=== PATIENT | female | born 2000 | race African-American/Black ===

== ENCOUNTER 2019-03-18 20:56 | Emergency (ER) | payer MEDICAID ==
[~2019-03-18] VITALS: Ht 152.4 cm; Wt 59.0 kg
[2019-03-18 21:00] VITALS: Ht 152.4 cm; Wt 59.0 kg
[2019-03-18] MEDS ORDERED: PHENERGAN25 M1 PO (21:01)
[2019-03-18 21:57] LABS: APPEARANCE TURBID (CLEAR); BILIRUBIN NEGATIVE (NEGATIVE); COLOR DK YELLOW (YELLOW); GLUCOSE NEGATIVE (NEGATIVE); KETONE NEGATIVE (NEGATIVE); NITRITE NEGATIVE (NEGATIVE); PROTEIN TRACE mg/dL (NEGATIVE); UROBILINOGEN NORMAL (NORMAL)
[2019-03-18 21:57] LABS: BASOPHILS 0.1 % (0-2); EOSINOPHILS 3.3 % (0-7); HEMATOCRIT 36.5 % (36.0-48.0); HEMOGLOBIN 12.3 g/dL (12-16); IMMATURE GRANULOCYTES 0.5 % (0-5); LYMPHOCYTES 17.7 % (15-50); MCH 31.4 pg (26.0-34.0); MCHC 33.7 g/dL (31.0-37.0); MCV 93.1 fL (80.0-100.0); MEAN PLATELET VOLUME 9.2 fL (7.4-10.4); NEUTROPHILS 69.4 % (40-80); PLATELET COUNT 279 10x3/uL (130-400); RBC 3.92 10x6/uL (4.00-5.40); RDW 13.1 % (11.5-14.5); WBC 14.6 10x3/uL (4.8-10.8)
[2019-03-18 21:59] LABS: CALC OSMOLALITY 274 mosm/kg (275-300); CALCIUM 8.7 mg/dL (8.5-10.1); CARBON DIOXIDE 25.6 mmol/L (21.0-32.0); CHLORIDE - SERUM 103 mmol/L (98-107); CREATININE - SERUM 0.6 mg/dL (0.6-1.3); GLUCOSE 87 mg/dL (74-106); POTASSIUM - SERUM 3.7 mmol/L (3.5-5.1); SODIUM 139 mmol/L (136-145); UREA NITROGEN 7 mg/dL (7-18); eGFR NON AFRICAN AMERICAN > 90 mL/min (90-120)
[2019-03-18 22:00] LABS: BACTERIA MODERATE /hpf (NEGATIVE); MUCUS <1+ /lpf (NONE SEEN); RED CELLS - URINE 0-5 /hpf (0-5)
[2019-03-18 22:12] LABS: UDS - AMPHET NEGATIVE QUAL (NEGATIVE); UDS - BARB NEGATIVE QUAL (NEGATIVE); UDS - BENZO NEGATIVE QUAL (NEGATIVE); UDS - COCAINE NEGATIVE QUAL (NEGATIVE); UDS - OPIATE POSITIVE QUAL (NEGATIVE); UDS - PCP NEGATIVE QUAL (NEGATIVE); UDS - THC NEGATIVE QUAL (NEGATIVE)
[2019-03-18 22:14] LABS: ALBUMIN 2.9 g/dL (3.4-5.0); ALKALINE PHOSPHATASE 47 U/L (46-116); ALT (SGPT) 16 U/L (10-68); BILIRUBIN - TOTAL 0.21 mg/dL (0.2-1.3); PRO BNP 18 pg/mL (0-125); PROTEIN - SERUM 6.9 g/dL (6.4-8.2); THYROID STIMULATING HORMONE 0.35 uIU/mL (0.36-3.74); TROPONIN-I < 0.017 ng/mL (0.000-0.060)
[2019-03-18] MEDS ORDERED: ALBUTEROL SULF8.5 GM INH (22:17)
[2019-03-18] MEDS ORDERED: OMNICEF300 MG PO (22:17)
[2019-03-18 23:10] VITALS: BP 106/71
== END 2019-03-18 23:10 | disposition home or self-care (01) ==
LOC: D.ER 20:56
PROVIDERS: Family Medicine
DX: O23.41 Unspecified infection of urinary tract in pregnancy, first trimester (principal); Z3A.13 13 weeks gestation of pregnancy; J98.01 Acute bronchospasm

== ENCOUNTER 2019-05-23 02:46 | Outpatient (CLI) | payer MEDICAID ==
[~2019-05-23 02:46] MED LIST: ALBUTEROL SULF8.5 GM INH; OMNICEF300 MG PO; PHENERGAN25 M1 PO
[2019-05-23 04:22] LABS: BILIRUBIN NEGATIVE (NEGATIVE); GLUCOSE NEGATIVE (NEGATIVE); KETONE NEGATIVE (NEGATIVE); NITRITE NEGATIVE (NEGATIVE); UROBILINOGEN NORMAL (NORMAL)
[2019-05-23 04:23] LABS: AMORPHOUS SEDIMENT <1+ /lpf (NONE SEEN); BACTERIA FEW /hpf (NEGATIVE); EPITHELIAL CELLS 0-5 /hpf (0-5); RED CELLS - URINE 0-5 /hpf (0-5); WHITE CELLS - URINE 0-5 /hpf (NEGATIVE)
== END 2019-05-23 05:55 | disposition home or self-care (01) ==
LOC: D.LDO 02:46
PROVIDERS: ATTEND Obstetrics & Gynecology
DX: O26.899 Other specified pregnancy related conditions, unspecified trimester (principal); Z3A.00 Weeks of gestation of pregnancy not specified; R10.9 Unspecified abdominal pain

== ENCOUNTER 2019-07-04 12:31 | Outpatient (CLI) | payer MEDICAID | END 2019-07-04 12:59 | disposition home or self-care (01) | LOC: D.LDO 12:31 | PROVIDERS: ATTEND Obstetrics & Gynecology | DX: O36.5930 Maternal care for other known or suspected poor fetal growth, third trimester, not applicable or unspecified (principal); Z3A.30 30 weeks gestation of pregnancy ==

== ENCOUNTER 2019-07-07 18:32 | Outpatient (CLI) | payer MEDICAID | END 2019-07-07 18:46 | disposition home or self-care (01) | LOC: D.LDO 18:32 | PROVIDERS: ATTEND Student in an Organized Health Care Education/Training Program | DX: O36.5930 Maternal care for other known or suspected poor fetal growth, third trimester, not applicable or unspecified (principal); Z3A.30 30 weeks gestation of pregnancy ==

== ENCOUNTER 2019-07-20 14:33 | Outpatient (CLI) | payer MEDICAID | END 2019-07-20 15:23 | disposition home or self-care (01) | LOC: D.LDO 14:33 | PROVIDERS: ATTEND Obstetrics & Gynecology | DX: O36.5930 Maternal care for other known or suspected poor fetal growth, third trimester, not applicable or unspecified (principal); Z3A.32 32 weeks gestation of pregnancy ==

== ENCOUNTER 2019-08-04 12:15 | Outpatient (CLI) | payer MEDICAID ==
[2019-08-04 13:19] LABS: UDS - AMPHET NEGATIVE QUAL (NEGATIVE); UDS - BARB NEGATIVE QUAL (NEGATIVE); UDS - BENZO NEGATIVE QUAL (NEGATIVE); UDS - COCAINE NEGATIVE QUAL (NEGATIVE); UDS - OPIATE NEGATIVE QUAL (NEGATIVE); UDS - PCP NEGATIVE QUAL (NEGATIVE); UDS - THC NEGATIVE QUAL (NEGATIVE)
[2019-08-04 14:11] LABS: BILIRUBIN NEGATIVE (NEGATIVE); GLUCOSE NEGATIVE (NEGATIVE); KETONE NEGATIVE (NEGATIVE); NITRITE NEGATIVE (NEGATIVE); UROBILINOGEN NORMAL (NORMAL)
== END 2019-08-04 14:10 | disposition home or self-care (01) ==
LOC: D.LDO 12:15
PROVIDERS: ATTEND Obstetrics & Gynecology
DX: O36.5990 Maternal care for other known or suspected poor fetal growth, unspecified trimester, not applicable or unspecified (principal); Z3A.00 Weeks of gestation of pregnancy not specified; M54.5 Low back pain

== ENCOUNTER 2019-08-09 15:58 | Observation (INO) | payer MEDICAID ==
--- NOTE | 2019-08-10 10:58 | MORECARE ---
CASE MANAGEMENT DISCHARGE SUMMARY PATIENT: MAXIMINO PRITCHETT UNIT: [id number] ADM DATE: 08/09/19 AGE: 19 : 89 SEX: F ROOM/BED: D.1227 AUTHOR: JAVIER FLOWER PHYSICIAN: REFERRING PHYSICIAN: LEANDER HOLDER DO DATE OF SERVICE: 08/10/19 Discharge Plan Patient Name: MAXIMINO PRITCHETT [facility] [facility] 2000 Planned Disposition: Home Anticipated Discharge Date: 08/10/19 Discharge Date: Expected LOS: 1 Initial Reviewer: [email or web address] Initial Review Date: 08/09/2019 Generated: 08/10/19 11:57 am Patient Name: MAXIMINO PRITCHETT Page [id number] at 1058 All edits/amendments must be made on the electronic document DICTATION DATE: 08/10/19 1057 FURNITURE ARRANGER: DEMARIO 08/10/19 1057 RPT#: [id number] DC DATE: STATUS: ADM IN [facility] [address] [place] [address] END OF REPORT
== END 2019-08-10 08:37 | disposition home or self-care (01) ==
LOC: D.LDO 15:58 → D.LD 19:11 → OBSVTIME 19:11 → D.LD 19:11
PROVIDERS: ADMIT Student in an Organized Health Care Education/Training Program; ATTEND Student in an Organized Health Care Education/Training Program
DX: O26.893 Other specified pregnancy related conditions, third trimester (principal); Z3A.35 35 weeks gestation of pregnancy

== ENCOUNTER 2019-08-12 04:06 | Outpatient (CLI) | payer MEDICAID ==
[2019-08-12 07:04] LABS: BILIRUBIN NEGATIVE (NEGATIVE); GLUCOSE NEGATIVE (NEGATIVE); KETONE NEGATIVE (NEGATIVE); NITRITE NEGATIVE (NEGATIVE); SPECIFIC GRAVITY 1.005 (1.005-1.020); UROBILINOGEN NORMAL (NORMAL)
== END 2019-08-12 10:08 | disposition home or self-care (01) ==
LOC: D.LDO 04:06
PROVIDERS: ATTEND Obstetrics & Gynecology
DX: O26.899 Other specified pregnancy related conditions, unspecified trimester (principal); Z3A.00 Weeks of gestation of pregnancy not specified; N85.8 Other specified noninflammatory disorders of uterus

== ENCOUNTER 2019-08-13 16:45 | Outpatient (CLI) | payer MEDICAID | END 2019-08-13 17:30 | disposition home or self-care (01) | LOC: D.LDO 16:45 → D.LABREF 16:45 → D.LDO 17:30 | PROVIDERS: ATTEND Student in an Organized Health Care Education/Training Program | DX: O36.5930 Maternal care for other known or suspected poor fetal growth, third trimester, not applicable or unspecified (principal); Z3A.35 35 weeks gestation of pregnancy ==

== ENCOUNTER 2019-08-21 22:48 | Outpatient (CLI) | payer MEDICAID ==
[2019-08-21 23:58] LABS: BILIRUBIN NEGATIVE (NEGATIVE); GLUCOSE NEGATIVE (NEGATIVE); KETONE NEGATIVE (NEGATIVE); NITRITE NEGATIVE (NEGATIVE); SPECIFIC GRAVITY 1.025 (1.005-1.020); UROBILINOGEN NORMAL (NORMAL)
[2019-08-21 23:59] LABS: BACTERIA MODERATE /hpf (NEGATIVE); CALCIUM OXALATE CRYSTALS 0-5 /hpf (NONE SEEN); EPITHELIAL CELLS 0-5 /hpf (0-5); RED CELLS - URINE 0-5 /hpf (0-5); WHITE CELLS - URINE 0-5 /hpf (NEGATIVE)
== END 2019-08-22 01:12 | disposition home or self-care (01) ==
LOC: D.LDO 22:48 → D.LD 23:12 → D.LDO 08-22 01:12
PROVIDERS: ATTEND Obstetrics & Gynecology
DX: O26.899 Other specified pregnancy related conditions, unspecified trimester (principal); Z3A.00 Weeks of gestation of pregnancy not specified; N85.8 Other specified noninflammatory disorders of uterus

== ENCOUNTER 2019-08-29 18:06 | Outpatient (CLI) | payer MEDICAID ==
[2019-08-29 19:40] LABS: BILIRUBIN NEGATIVE (NEGATIVE); GLUCOSE NEGATIVE (NEGATIVE); KETONE NEGATIVE (NEGATIVE); NITRITE NEGATIVE (NEGATIVE); UROBILINOGEN NORMAL (NORMAL)
[2019-08-29 19:41] LABS: BACTERIA MODERATE /hpf (NEGATIVE); EPITHELIAL CELLS 0-5 /hpf (0-5); RED CELLS - URINE NONE SEEN /hpf (0-5); WHITE CELLS - URINE 0-5 /hpf (NEGATIVE)
[2019-08-29 19:42] LABS: AMORPHOUS SEDIMENT >1+ /lpf (NONE SEEN)
== END 2019-08-29 20:13 | disposition home or self-care (01) ==
LOC: D.LDO 18:06
PROVIDERS: ATTEND Obstetrics & Gynecology
DX: O26.899 Other specified pregnancy related conditions, unspecified trimester (principal); Z3A.00 Weeks of gestation of pregnancy not specified

== ENCOUNTER 2019-08-30 14:50 | Outpatient (CLI) | payer MEDICAID ==
[2019-09-03 08:44] VITALS: BMI 27.3
== END 2019-08-30 16:30 | disposition home or self-care (01) ==
LOC: D.LDO 14:50
PROVIDERS: ATTEND Student in an Organized Health Care Education/Training Program
DX: O26.899 Other specified pregnancy related conditions, unspecified trimester (principal); Z3A.00 Weeks of gestation of pregnancy not specified; R10.30 Lower abdominal pain, unspecified

== ENCOUNTER 2019-09-03 05:35 | Inpatient (IN) | payer MEDICAID ==
[~2019-09-03] VITALS: Ht 152.4 cm; Wt 63.6 kg
[2019-09-03] MEDS ORDERED: PRENAVITE1 TAB PO (08:32)
[2019-09-03 08:44] VITALS: BP 109/73; Ht 152.4 cm; Wt 63.6 kg
[2019-09-03 09:17] LABS: HEMATOCRIT 31.5 % (36.0-48.0); HEMOGLOBIN 10.3 g/dL (12-16); MCH 30.3 pg (26.0-34.0); MCHC 32.7 g/dL (31.0-37.0); MCV 92.6 fL (80.0-100.0); MEAN PLATELET VOLUME 9.6 fL (7.4-10.4); RBC 3.4 10x6/uL (4.00-5.40); RDW 12.8 % (11.5-14.5); WBC 11.7 10x3/uL (4.8-10.8)
--- NOTE | 2019-09-03 18:00 | NUR ---
PT TRANSFERRED TO ROOM 1273 AMBULATORY WITH ASSIST FROM MOTHER IN TRANSFERRING BELONGINGS. PT AMBULATES WITH STEADY GAIT. PT STATES SHE WANTS TO GET IN SHOWER NOW. ORIENTED TO NEW ROOM AND BATHROOM. PT PROVIDED WITH TOWELS AND SHOWER SUPPLIES. PT TO SHOWER, DENIES FEELING DIZZY OR NEED FOR ASSIST. PT MOTHER IN ROOM WITH PT FOR HELP IF NEEDED. PT INSTRUCTED ON S/S TO REPORT INCLUDING LOCHIA FLOW. UNDERSTANDING VERBALIZED. WILL CONT TO MONITOR.
[2019-09-03 19:20] VITALS: BP 109/64
--- NOTE | 2019-09-03 19:20 | NUR ---
ASSESSMENT PER FLOW SHEET, VS OBTAINED, IV IN LEFT FA INTACT WITH NO REDNESS OR EDEMA, FF, ML, U/1, PT REPORTS LITE BLEEDING WITH NO CLOTS, PT REPORTS THAT SHE ALREADY TOOK A SHOWER, PT RATES CRAMPING 08/07, INFORMED PT THAT I WILL CHECK TO SEE WHAT ELSE SHE HAS ORDERED, PT VERBALIZES UNDERSTANDING, REQUESTED AND SERVED DR ZAMORA, DENIES FURTHER NEEDS, DINNER TRAY REMOVED
--- NOTE | 2019-09-03 19:39 | NUR ---
ADM DENNISON PER MD ORDERS, SEE EMAR
--- NOTE | 2019-09-03 20:30 | NUR ---
PT HOLDING INFANT, VISITING WITH FAMILY MEMBER, RATES CRAMPING 2/10, DENIES NEEDS AT THIS TIME
--- NOTE | 2019-09-03 21:10 | NUR ---
PT IRON HANDLER LIGHT, HOLDING , REQUESTED AND SERVED SANDWICH TRAY, DENIES FURTHER NEEDS, FAMILY MEMBER AT BEDSIDE
--- NOTE | 2019-09-03 22:00 | NUR ---
PT SENIOR SALES OPERATIONS ANALYST LIGHT, HOLDING INFANT, VISITING WITH FAMILY MEMBER, REQUESTED AND SERVED FRESH H20, DENIES SHANNAER NEEDS
--- NOTE | 2019-09-03 22:30 | NUR ---
DR GERONIMO PAGED
--- NOTE | 2019-09-03 22:31 | NUR ---
DR GERONIMO CALLS UNIT, INFORMED DR GERONIMO THAT A UA/UDS WAS ENTERED BY A HEALTHCARE SOCIAL WORKER, DR GERONIMO REPORTS THAT HE DIDN'T ORDER THAT AND TO JUST D/C THAT ORDER
--- NOTE | 2019-09-03 23:38 | NUR ---
PT CORRECTIONS CASEWORKER LIGHT, PT C/O CRAMPING, ADM GABRIELLA PER MD ORDERS, SEE EMAR, PT UPSET BECAUSE HER MOM COULD NOT COME BACK IN, PT INFORMED OF VISITOR RULES BECAUSE HER SISTER IS VISITING NOW, PT NOT HAPPY, REPORTS THAT SHE IS GOING TO FILE A COMPLAINT, PT DENIES FURTHER NEEDS
--- NOTE | 2019-09-03 23:47 | NUR ---
PT INFORMED THAT THE PIZZA THEY ORDERED WAS AT THE ER AT THIS TIME, PT REQUESTS TO WALK WITH HER SISTER TO GO AND GET IT, MASK PROVIDED, PT AMB OFF UNIT, GAIT STEADY, WITH SISTER AT HER SIDE
--- NOTE | 2019-09-03 23:59 | NUR ---
PT BACK TO ROOM, SISTER AT SIDE
--- NOTE | 2019-09-04 01:01 | NUR ---
PT GETTING READY FOR BED, PT INST NOT TO FALL ASLEEP WITH INFANT IN BED WITH HER, PT VERBALIZES UNDERSTANDING, PT RATES CRAMPING 1/10, DENIES NEEDS, BEDDING PROVIDED TO PT'S SISTER
--- NOTE | 2019-09-04 03:30 | NUR ---
PT BODY BUMPER LIGHT, C/O CRAMPING, INFORMED PT THAT I WILL BE IN AT 4:10 TO ADM PAIN MED, PT VERBALIZES UNDERSTANDING, DENIES FURTHER NEEDS AT THIS TIME
--- NOTE | 2019-09-04 04:09 | NUR ---
PT AWAKE, TALKING ON CELL PHONE, INFANT IN OPEN CRIB CART AT BEDSIDE, ADM JUMA PER MD ORDERS, SEE EMAR, PT DENIES FURTHER NEEDS, PT'S SISTER ASLEEP ON COUCH
--- NOTE | 2019-09-04 05:24 | NUR ---
PT HOLDING INFANT, TALKING ON PHONE, REPORTS CRAMPING IS ALITTLE BETTER, DENIES NEEDS AT THIS TIME, SISTER ASLEEP ON COUCH
[2019-09-04 05:57] LABS: BASOPHILS 0.1 % (0-2); EOSINOPHILS 2.6 % (0-7); HEMATOCRIT 30.2 % (36.0-48.0); HEMOGLOBIN 9.7 g/dL (12-16); IMMATURE GRANULOCYTES 0.5 % (0-5); LYMPHOCYTES 31.8 % (15-50); MCH 29.5 pg (26.0-34.0); MCHC 32.1 g/dL (31.0-37.0); MCV 91.8 fL (80.0-100.0); MEAN PLATELET VOLUME 9.6 fL (7.4-10.4); MONOCYTES 12.6 % (2-11); NEUTROPHILS 52.4 % (40-80); PLATELET COUNT 246 10x3/uL (130-400); RBC 3.29 10x6/uL (4.00-5.40); RDW 12.7 % (11.5-14.5); WBC 13.4 10x3/uL (4.8-10.8)
[2019-09-04 07:14] LABS: RAPID PLASMA REAGIN Non Reactive (Non Reactive)
--- NOTE | 2019-09-04 07:59 | NUR ---
PT IN RIGHT LATERAL POSITION. PHYSICAL ASSESSMENT DONE. SEE SHIFT ASSESSMENT. FF/ U/1. MODERATE RUBRA LOCHIA NOTED ON GONZALEZ PADS. PT DENIES PASSING CLOTS THROUGHOUT THE NIGHT. SL IN LEFT WRIST. DCD WITH CATH TIP INTACT PER PT REQUEST. DISCUSSED MMR VACCINE AND HER NON IMMUNE STATUS WITH PT. PT REFUSES VACCINATION AT THIS TIME. PT REPORTS PAIN IN ABDOMEN AND DESCRIBES CRAMPING. REQUESTS PAIN MEDICINE.
--- NOTE | 2019-09-04 08:11 | NUR ---
NORCO GIVEN ORDERED. SEE EMAR. PT INQUIRING ABOUT DC TIME. INFORMED PT THAT DC WOULD OCCUR AFTER AT LEAST 24HRS FROM DELIVERY TIME. PT VERBALIZES UNDERSTANDING AND DENIES FURTHER NEEDS. TOWELS AND WASH CLOTHS PROVIDED AT THIS TIME FOR PT TO SHOWER.
--- NOTE | 2019-09-04 10:00 | NUR ---
PT SITTING UP ON SIDE OF BED. PT DENIES PAIN OR NEEDS AT THIS TIME.
--- NOTE | 2019-09-04 12:00 | NUR ---
PT IN HIGH FOWLERS POSITION. RATES PAIN AS3/10 IN ABDOMEN. DENIES NEEDS
--- NOTE | 2019-09-04 16:15 | NUR ---
PAIN MED GIVEN FOR PT COMPLAINT OF PAIN/CRAMPING THAT SHE RATES AT 6/10. PT AWAITING DISCHARGE ORDER AT THIS TIME. DENIES ANY OTHER NEEDS.
--- NOTE | 2019-09-04 16:23 | NUR ---
DISCHARGE VERIFIED WITH DR GERONIOM, ORDER RECEIVED.
--- NOTE | 2019-09-04 17:15 | NUR ---
WRITTEN AND VERBAL DISCHARGE INSTRUCTIONS GIVEN. PRESCRIPTION FOR NORCO AND MOTRIN GIVEN WELL PP INSTRUCTIONS, SMOKING CESSATION, SUICIDE PREVENTION, AND OTHER EDUCATIONAL MATERIALS PROVIDED. PT DENIES NEEDS OR FURTHER QUESTIONS.
--- NOTE | 2019-09-04 18:00 | NUR ---
PT OFF UNIT WITH IN CAR SEAT WITH FAMILY MEMBER
[2019-09-04] MEDS ORDERED: MOTRIN600 MG (18:03)
[2019-09-04] MEDS ORDERED: HYDROCODON-ACE1 EAC7 PO (18:04)
== END 2019-09-04 18:00 | disposition home or self-care (01) | DRG 807 ==
LOC: D.LDO 05:35 → D.LD 06:45
PROVIDERS: ADMIT Obstetrics & Gynecology; ATTEND Obstetrics & Gynecology
PROC: 10E0XZZ Delivery of Products of Conception, External Approach (ICD-10-PCS; principal; 2019-09-03)
PROC: 10907ZC Drainage of Amniotic Fluid, Therapeutic from Products of Conception, Via Natural or Artificial Opening (ICD-10-PCS; 2019-09-03)
DX: O62.0 Primary inadequate contractions (principal); Z37.0 Single live birth; Z3A.38 38 weeks gestation of pregnancy